=== PATIENT | female | born 1940 | race Hispanic/Latino ===

== ENCOUNTER 2017-06-12 09:49 | Day surgery (SDC) | payer MEDICARE, MEDICAID ==
[2017-05-14 17:51] VITALS: BMI 32.3
[2017-06-12] MEDS ORDERED: Levofloxacin 500 mg/D5W 100 ml Premix Bag ONE (12:09)
[2017-06-12] MEDS ORDERED: Fentanyl 100 MCG/2 ML VIAL ONE (12:14)
[2017-06-12] MEDS ORDERED: Lidocaine 2% PF 10 ML AMP (For Epidural Use) ONE (12:40)
[2017-06-12] MEDS ORDERED: PHENYLEPHRINE-NS 100 MCG/ML 10 ML SYRINGE ONE (12:40)
[2017-06-12] MEDS ORDERED: Propofol 200 MG/20 ML VIAL ONE (12:40)
[2017-06-12] MEDS ORDERED: Glycopyrrolate 0.2 MG/ML 5 ML SYRINGE ONE (12:40)
[2017-06-12] MEDS ORDERED: Ondansetron HCl/PF 4 MG/2 ML Vial ONE (12:40)
--- NOTE | 2017-06-12 13:37 | OP ---
DATE OF PROCEDURE: 06/12/2017 PREOPERATIVE DIAGNOSES: 1. A 76-year-old female, G 13, P 132, with history of recurrent bacteriuria, usually asymptomatic. 2. History of microscopic hematuria. CT abdomen and pelvis/angiograms 08/2016 with no significant bladder lesion. 3. History of renal artery stenosis. 4. Nonspecific posterior/dome cystic lesion of unclear etiology. POSTOPERATIVE DIAGNOSES: 1. A 76-year-old female, G 13, P 132, with history of recurrent bacteriuria, usually asymptomatic. 2. History of microscopic hematuria. CT abdomen and pelvis/angiograms 08/2016 with no significant bladder lesion. 3. History of renal artery stenosis. 4. Nonspecific posterior/dome cystic lesion of unclear etiology. PROCEDURE: Cystoscopy, bladder biopsy, fulguration of biopsy site. SURGEON: Maryam Robbins D.O. ANESTHESIA: General. COMPLICATIONS: None apparent. DISPOSITION: To the recovery room in stable condition. INTRAOPERATIVE FINDINGS: No evidence of papillary bladder lesion. At the junction of the posterior bladder wall/dome a 6-8 mm nonspecific submucosal cystic like lesion, unclear etiology. INDICATIONS FOR THE PROCEDURE AND HISTORY: Mr. Bowers is a 76-year-old female, who presented with history of peripheral vascular disease, renal artery stenosis, on observation for recurrent bacteria usually asymptomatic. CT angiogram of the abdomen and pelvis demonstrates no significant bladder lesion, no bladder dome mass, no urethral abnormality, no renal mass appreciated. She underwent local cystoscopy due to incidental microscopic hematuria, cytology negative. She has been cleared by cardiopulmonary subspecialists to proceed due to her comorbidities. Risks and complications of the procedure was discussed with patient in detail including, but not limited to, bleeding, pain, injury to adjacent organs, bladder perforation. All questions answered to her satisfaction, she desired to proceed. DESCRIPTION OF THE PROCEDURE: After an informed consent is signed, the patient is taken to the operating room, placed in a dorsal lithotomy position with the genital area prepped and draped in the usual surgical sterile fashion. A 21- [place] cystoscope was utilized with ease. As previously noted, she has a significant pelvic prolapse with deviated trigone. A 70 degree lens was utilized, which UOs were identified. There was no evidence of papillary bladder mass. The UOs demonstrated clear efflux of urine. Again noted at the junction of the posterior wall/dome there was a 6-8 mm cystic lesion of unclear etiology. A cold cup biopsy was utilized to remove the lesion intact and the biopsy site was fulgurated. Lesions were sent with biopsy x2 performing. She tolerated the procedure well with good hemostasis. No Dobson was necessary due to small lesion biopsy. She will follow up with me in 2-week interval to review pathology. Appointment scheduled for 07/08/2017. She is advised to continue her baby aspirin, Plavix is to be held until urine output remains clear , minimum of 24-48 hours. The patient discharged with AZO p.r.n., ciprofloxacin for 3 days. MTDD
[2017-06-12] MEDS ORDERED: Phenazopyridine HCl 97.5 MG TABLET ONE (13:43)
[2017-06-12] MEDS ORDERED: Oxybutynin Chloride 5 MG TAB ONE (13:43)
== END 2017-06-12 15:40 ==
LOC: SDC 09:49
PROVIDERS: ATTEND Urology
PROC: 0T5B8ZZ Destruction of Bladder, Via Natural or Artificial Opening Endoscopic (ICD-10-PCS; principal; 2017-06-12)
DX: N30.21 Other chronic cystitis with hematuria (principal); M32.9 Systemic lupus erythematosus, unspecified; M19.90 Unspecified osteoarthritis, unspecified site; K21.9 Gastro-esophageal reflux disease without esophagitis; E11.22 Type 2 diabetes mellitus with diabetic chronic kidney disease; I13.0 Hypertensive heart and chronic kidney disease with heart failure and stage 1 through stage 4 chronic kidney disease, or unspecified chronic kidney disease; N18.3 Chronic kidney disease, stage 3 (moderate); I50.9 Heart failure, unspecified; N81.6 Rectocele; E11.42 Type 2 diabetes mellitus with diabetic polyneuropathy; I25.10 Atherosclerotic heart disease of native coronary artery without angina pectoris; G51.0 Bell's palsy; I72.2 Aneurysm of renal artery; Z88.2 Allergy status to sulfonamides; Z91.018 Allergy to other foods; Z79.899 Other long term (current) drug therapy; Z79.82 Long term (current) use of aspirin; Z90.49 Acquired absence of other specified parts of digestive tract; Z95.5 Presence of coronary angioplasty implant and graft; Z98.818 Other dental procedure status; Z98.890 Other specified postprocedural states; Z87.01 Personal history of pneumonia (recurrent)
CPT/HCPCS: 36415; 80048; 81001; 85027; 85610; 85730; 86850; 86900; 86901; 87086; 88305; J1956; J2001; J2405; J2704; J3010

== ENCOUNTER 2017-11-27 13:29 | Outpatient (CLI) | payer MEDICARE, MEDICAID | END 2017-11-27 13:30 | disposition home or self-care (01) | LOC: BICMAMMO 13:29 | PROVIDERS: ATTEND Family Medicine | DX: Z12.31 Encounter for screening mammogram for malignant neoplasm of breast (principal) | CPT/HCPCS: 77063; 77067 ==

== ENCOUNTER 2019-12-11 14:01 | Outpatient (CLI) | payer MEDICARE, MEDICAID ==
--- NOTE | 2019-12-11 14:49 | BD ---
DEXA BONE DENSITY STUDY: Date: 12/11/2019 HISTORY: Osteoporosis, postmenopausal evaluation. FINDINGS: Lumbar Spine: BMD (g/cm2) L1 0.649 T-Score: -3.1 L2 0.608 T-Score: -2.9 L3 0.815 T-Score: -2.4 L4 0.827 T-Score: -2.1 L1-L4 0.760 T-Score: -2.6 Evidence for osteoporosis with high risk for fracture. Bone mineral density has decreased approximately 6% from prior 06/17/2014 study. Left Hip: Femoral Neck: 0.446 T-Score: -3.6 Total Femur: 0.640 T-Score: -2.5 Evidence for osteoporosis with high risk for fracture. Bone mineral density has decreased approximately 5% from 06/17/2014. POS: [facility]
== END 2019-12-11 14:02 | disposition home or self-care (01) ==
LOC: BICMAMMO 14:01
PROVIDERS: ATTEND Family Medicine
DX: Z13.820 Encounter for screening for osteoporosis (principal); M81.0 Age-related osteoporosis without current pathological fracture
CPT/HCPCS: 77080

== ENCOUNTER 2021-03-12 20:45 | Emergency (ER) | payer MEDICARE, MEDICAID ==
[2021-03-12 21:48] LABS: #Eosinphils 0.1 thou/uL (0.0-0.7); #Lymphocytes 2.8 thou/uL (1.20-3.40); #Monocytes 0.6 thou/uL (0.11-0.59); #Neutrophils 5.6 thou/uL (1.40-6.50); %Basophils 0.5 % (0.0-1.0); %Eosinophils 1.2 % (0.0-10.0); %Lymphocytes 30.3 % (21.0-51.0); %Monocytes 6.7 % (0.0-10.0); %Neutrophils 61.4 % (42.0-75.0); Hemoglobin 11.3 g/dL (12.0-16.0); Mean Corpuscular HGB CONC 33.8 g/dL (32.0-36.0); Mean Corpuscular Hemoglobin 34.9 pg (27.0-31.0); Mean Platelet Volume 7.4 fL (7.4-10.4); Platelet Count 212 thou/uL (130-400); RBC Distribution Width 11.5 % (11.5-14.5); Red Blood Cell (RBC) Count 3.25 mill/uL (4.20-5.40); White Blood Cell (WBC) Count 9.1 thou/uL (4.8-10.8)
[2021-03-12 21:56] LABS: ALT (SGPT) 24 U/L (8-55); AST (SGOT) 26 U/L (5-34); Alkaline Phosphatase 89 U/L (40-110); Anion Gap 16 mmol/L (10-20); BUN (Urea Nitrogen) 27 mg/dL (9.8-20.1); Bilirubin, Total 0.2 mg/dL (0.2-1.2); Calc. Creatinine Clearance 0 mL/min (70-130); Calcium 9.2 mg/dL (7.8-10.44); Carbon Dioxide 25 mmol/L (23-31); Chloride 103 mmol/L (98-107); Globulin 3.6 g/dL (2.4-3.5); Glucose 76 mg/dL (83-110); Lipase 141 U/L (8-78); Potassium 4.5 mmol/L (3.5-5.1); Protein, Total 7.6 g/dL (5.8-8.1); Sodium 139 mmol/L (136-145)
[2021-03-12 22:01] LABS: Troponin I Less than 0.010 ng/mL (< 0.028)
[2021-03-12] MEDS ORDERED: Lidocaine Viscous Sol 2% 15 ml UD Cup ONE (23:45)
[2021-03-12] MEDS ORDERED: Mag-Al 1200 mg/1200 mg/30 ML UDCUP ONE (23:45)
== END 2021-03-13 00:42 | disposition home or self-care (01) ==
LOC: ERS 20:45
DX: R07.89 Other chest pain (principal); I12.9 Hypertensive chronic kidney disease with stage 1 through stage 4 chronic kidney disease, or unspecified chronic kidney disease; E11.22 Type 2 diabetes mellitus with diabetic chronic kidney disease; N18.9 Chronic kidney disease, unspecified; I25.10 Atherosclerotic heart disease of native coronary artery without angina pectoris; E78.00 Pure hypercholesterolemia, unspecified; E78.5 Hyperlipidemia, unspecified; K21.9 Gastro-esophageal reflux disease without esophagitis; E11.40 Type 2 diabetes mellitus with diabetic neuropathy, unspecified; Z86.711 Personal history of pulmonary embolism; Z86.718 Personal history of other venous thrombosis and embolism; Z86.73 Personal history of transient ischemic attack (TIA), and cerebral infarction without residual deficits; Z79.82 Long term (current) use of aspirin; Z79.899 Other long term (current) drug therapy; Z79.02 Long term (current) use of antithrombotics/antiplatelets
CPT/HCPCS: 36415; 71045; 71275; 83690; 83880; 93005

== ENCOUNTER 2022-02-08 15:04 | Observation (INO) | payer MEDICARE, MEDICAID ==
[2022-02-08 16:12] LABS: #Lymphocytes 1.6 thou/uL (1.20-3.40); #Monocytes 0.3 thou/uL (0.11-0.59); #Neutrophils 5.3 thou/uL (1.40-6.50); %Basophils 0.1 % (0.0-1.0); %Eosinophils 0.6 % (0.0-10.0); %Lymphocytes 21.8 % (21.0-51.0); %Monocytes 4.6 % (0.0-10.0); %Neutrophils 72.9 % (42.0-75.0); Hemoglobin 10.3 g/dL (12.0-16.0); Mean Corpuscular HGB CONC 33.3 g/dL (32.0-36.0); Mean Corpuscular Hemoglobin 36.5 pg (27.0-31.0); Mean Platelet Volume 6.9 fL (7.4-10.4); Platelet Count 179 thou/uL (130-400); RBC Distribution Width 11.1 % (11.5-14.5); Red Blood Cell (RBC) Count 2.83 mill/uL (4.20-5.40); White Blood Cell (WBC) Count 7.3 thou/uL (4.8-10.8)
[2022-02-08 16:21] LABS: INR-International Normal Ratio 1.2; Prothrombin Time 14.9 sec (12.0-14.7)
[2022-02-08 16:22] LABS: PTT 36.9 sec (22.9-36.1)
[2022-02-08 16:27] LABS: MDiff Complete? YES; Macrocytosis SLIGHT = 6-15 cells (100X) (0-5/hpf); Platelet Morphology Comment Appears Adequate; Polychromasia SLIGHT = 2-3 cells (100X) (0-2/hpf)
[2022-02-08 16:34] LABS: ALT (SGPT) 12 U/L (8-55); AST (SGOT) 17 U/L (5-34); Albumin 3.8 g/dL (3.4-4.8); Alkaline Phosphatase 76 U/L (40-110); Anion Gap 12 mmol/L (10-20); BUN (Urea Nitrogen) 28 mg/dL (9.8-20.1); Bilirubin, Total 0.4 mg/dL (0.2-1.2); Calc. Creatinine Clearance 0 mL/min (70-130); Calcium 8.8 mg/dL (7.8-10.44); Carbon Dioxide 23 mmol/L (23-31); Chloride 106 mmol/L (98-107); Glucose 113 mg/dL (83-110); Potassium 4.8 mmol/L (3.5-5.1); Protein, Total 6.8 g/dL (5.8-8.1); Sodium 136 mmol/L (136-145)
[2022-02-08] MEDS ORDERED: Calcium Carbonate 500 MG ChewTAB PO PRN (18:24)
[2022-02-08] MEDS ORDERED: Acetaminophen 325 MG TAB PO PRN (18:24)
[2022-02-08] MEDS ORDERED: Senokot S 8.6-50 MG TAB PO PRN (18:24)
[2022-02-08] MEDS ORDERED: HYDROcodone/Acetaminophen 5/325 mg Tablet PO PRN (18:24)
[2022-02-08 19:37] VITALS: BMI 24.0
[2022-02-08] MEDS ORDERED: Enoxaparin Sodium 60 MG/0.6 ML SYRINGE SC SCH (20:00)
[2022-02-09 02:13] LABS: SARS-CoV-2 PCR by NAA Not Detected (NotDetected)
[2022-02-09 04:34] LABS: #Eosinphils 0.1 thou/uL (0.0-0.7); #Monocytes 0.5 thou/uL (0.11-0.59); #Neutrophils 3.9 thou/uL (1.40-6.50); %Basophils 0.6 % (0.0-1.0); %Eosinophils 1.4 % (0.0-10.0); %Lymphocytes 30.1 % (21.0-51.0); %Monocytes 8.4 % (0.0-10.0); %Neutrophils 59.5 % (42.0-75.0); Hemoglobin 10.7 g/dL (12.0-16.0); Mean Corpuscular HGB CONC 33.1 g/dL (32.0-36.0); Mean Corpuscular Hemoglobin 36.3 pg (27.0-31.0); Mean Platelet Volume 6.9 fL (7.4-10.4); Platelet Count 161 thou/uL (130-400); Red Blood Cell (RBC) Count 2.94 mill/uL (4.20-5.40); White Blood Cell (WBC) Count 6.5 thou/uL (4.8-10.8)
[2022-02-09 04:57] LABS: Anion Gap 10 mmol/L (10-20); BUN (Urea Nitrogen) 22 mg/dL (9.8-20.1); Calc. Creatinine Clearance 31 mL/min (70-130); Calcium 8.4 mg/dL (7.8-10.44); Carbon Dioxide 24 mmol/L (23-31); Chloride 111 mmol/L (98-107); Glucose 89 mg/dL (83-110); Potassium 4.2 mmol/L (3.5-5.1); Sodium 141 mmol/L (136-145)
[2022-02-09] MEDS ORDERED: traMADol HCl 50 MG TAB PO PRN (08:29)
[2022-02-09] MEDS ORDERED: Loratadine 10 MG TAB PO PRN (08:29)
[2022-02-09] MEDS ORDERED: HYDROcodone/Acetaminophen 5/325 mg Tablet PO PRN (08:29)
[2022-02-09] MEDS ORDERED: Multivit, Therapeutic 1 TAB PO SCH (09:30)
[2022-02-09] MEDS ORDERED: Famotidine 20 MG TAB PO SCH (09:30)
[2022-02-09] MEDS: Amlodipine 5 MG TAB PO SCH ×2 (09:45→20:13)
[2022-02-09] MEDS: Clopidogrel Bisulfate 75 MG TAB PO SCH (09:46)
[2022-02-09] MEDS: Aspirin 81 mg Enteric Coated Tablet PO SCH (09:46)
[2022-02-09] MEDS: Gabapentin 300 MG CAP PO SCH ×2 (09:48→20:14)
[2022-02-09] MEDS: Carvedilol 25 MG TAB PO SCH (16:08)
[2022-02-09] MEDS ORDERED: Enoxaparin Sodium 40 MG/0.4 ML SYRINGE SC SCH (18:00)
[2022-02-09] MEDS ORDERED: Electrolyte Replacement Protocol 1 EACH FS SCH (18:00)
[2022-02-09] MEDS: Sodium Chloride 0.9% 1,000 ML IV SCH (18:47)
[2022-02-09] MEDS ORDERED: Atorvastatin Calcium 40 MG TAB PO SCH (21:00)
[2022-02-09] MEDS ORDERED: Ezetimibe 10 MG TAB PO SCH (21:00)
[2022-02-10 04:51] LABS: #Basophils 0.1 thou/uL (0.0-0.2); #Eosinphils 0.1 thou/uL (0.0-0.7); #Lymphocytes 2.4 thou/uL (1.20-3.40); #Monocytes 0.6 thou/uL (0.11-0.59); #Neutrophils 3.2 thou/uL (1.40-6.50); %Eosinophils 1.5 % (0.0-10.0); %Lymphocytes 37.7 % (21.0-51.0); %Neutrophils 50.9 % (42.0-75.0); Hemoglobin 10.2 g/dL (12.0-16.0); Mean Corpuscular HGB CONC 34.3 g/dL (32.0-36.0); Mean Corpuscular Hemoglobin 37.3 pg (27.0-31.0); Mean Platelet Volume 7.6 fL (7.4-10.4); Platelet Count 173 thou/uL (130-400); RBC Distribution Width 11.7 % (11.5-14.5); Red Blood Cell (RBC) Count 2.74 mill/uL (4.20-5.40); White Blood Cell (WBC) Count 6.3 thou/uL (4.8-10.8)
[2022-02-10 05:14] LABS: Anion Gap 9 mmol/L (10-20); BUN (Urea Nitrogen) 14 mg/dL (9.8-20.1); Calc. Creatinine Clearance 43 mL/min (70-130); Calcium 8.6 mg/dL (7.8-10.44); Carbon Dioxide 26 mmol/L (23-31); Chloride 112 mmol/L (98-107); Glucose 113 mg/dL (83-110); Magnesium 1.6 mg/dL (1.6-2.6); Sodium 143 mmol/L (136-145)
[2022-02-10 05:19] LABS: Troponin I Less than 0.010 ng/mL (< 0.028)
[2022-02-10] MEDS ORDERED: Magnesium 2 GM/50 ML(in water) 2 GM in Premix Bag 1 BAG IVPB SCH (05:30)
[2022-02-10] MEDS: Clopidogrel Bisulfate 75 MG TAB PO SCH (08:40)
[2022-02-10] MEDS: Aspirin 81 mg Enteric Coated Tablet PO SCH (08:42)
[2022-02-10] MEDS: Amlodipine 5 MG TAB PO SCH (08:42)
[2022-02-10] MEDS: Gabapentin 300 MG CAP PO SCH (08:43)
[2022-02-10] MEDS: Carvedilol 25 MG TAB PO SCH (08:44)
[2022-02-10] MEDS ORDERED: Cyanocobalamin (Vitamin B-12) 1,000 MCG TAB PO SCH (09:00)
[2022-02-10] MEDS ORDERED: Famotidine 20 MG TAB PO SCH (09:00)
[2022-02-10] MEDS ORDERED: Multivit, Therapeutic 1 TAB PO SCH (09:00)
[2022-02-10] MEDS: Sodium Chloride 0.9% 1,000 ML IV SCH (09:46)
[2022-02-10] MEDS ORDERED: Iopamidol-370 76% 500 ML 1 ML ONE (10:11)
[2022-02-10 11:40] VITALS: BP 152/69; TEMP 97.9
== END 2022-02-10 15:20 | disposition home or self-care (01) ==
LOC: ERS 15:04 → 2SW 17:19
PROVIDERS: ADMIT Internal Medicine; ATTEND Internal Medicine
DX: J96.01 Acute respiratory failure with hypoxia (principal); M79.604 Pain in right leg; R10.30 Lower abdominal pain, unspecified; I13.10 Hypertensive heart and chronic kidney disease without heart failure, with stage 1 through stage 4 chronic kidney disease, or unspecified chronic kidney disease; N18.2 Chronic kidney disease, stage 2 (mild); N17.9 Acute kidney failure, unspecified; D63.1 Anemia in chronic kidney disease; I25.10 Atherosclerotic heart disease of native coronary artery without angina pectoris; I73.9 Peripheral vascular disease, unspecified; E78.5 Hyperlipidemia, unspecified; M19.90 Unspecified osteoarthritis, unspecified site; J44.9 Chronic obstructive pulmonary disease, unspecified; K21.9 Gastro-esophageal reflux disease without esophagitis; M81.0 Age-related osteoporosis without current pathological fracture; I08.3 Combined rheumatic disorders of mitral, aortic and tricuspid valves; Z86.73 Personal history of transient ischemic attack (TIA), and cerebral infarction without residual deficits; Z86.711 Personal history of pulmonary embolism; Z86.718 Personal history of other venous thrombosis and embolism; Z79.02 Long term (current) use of antithrombotics/antiplatelets; Z79.82 Long term (current) use of aspirin; Z79.899 Other long term (current) drug therapy; Z79.84 Long term (current) use of oral hypoglycemic drugs; Z88.2 Allergy status to sulfonamides; Z91.018 Allergy to other foods; Z95.5 Presence of coronary angioplasty implant and graft; Z20.822 Contact with and (suspected) exposure to COVID-19
CPT/HCPCS: 71045; 71275; 78451; 80048 ×2; 80053; 82962 ×2; 83735; 83880; 84484 ×2; 85025 ×3; 85379; 85610; 85730; 93306; 93971; 94640 ×3; 94799; 97139 ×3; 99285; A9540; U0003; U0005; 36415; 36416; 96372; 96374; G0378; J1650; J3475; J7050; J7620; Q9967

== ENCOUNTER 2023-03-11 05:44 | Inpatient (IN) | payer OTHER, MEDICAID ==
[2023-03-11 07:00] LABS: #Eosinphils 0.1 thou/uL (0.0-0.7); #Monocytes 0.1 thou/uL (0.11-0.59); #Neutrophils 5.9 thou/uL (1.40-6.50); %Basophils 0.3 % (0.0-1.0); %Eosinophils 1.3 % (0.0-10.0); %Lymphocytes 11.7 % (21.0-51.0); %Monocytes 1.4 % (0.0-10.0); %Neutrophils 85.2 % (42.0-75.0); Hemoglobin 10.4 g/dL (12.0-16.0); Mean Corpuscular HGB CONC 33.9 g/dL (32.0-36.0); Mean Corpuscular Volume 103.4 fl (78.0-98.0); Mean Platelet Volume 10.1 fL (7.4-10.4); Platelet Count 161 10x3/uL (130-400); RBC Distribution Width 12.2 % (11.5-14.5); Red Blood Cell (RBC) Count 2.97 mill/uL (4.20-5.40); White Blood Cell (WBC) Count 6.9 10x3/uL (4.8-10.8)
[2023-03-11 07:24] LABS: ALT (SGPT) 141 U/L (8-55); AST (SGOT) 337 U/L (5-34); Albumin 3.9 g/dL (3.4-4.8); Alkaline Phosphatase 154 U/L (40-110); Anion Gap 11 mmol/L (10-20); BUN (Urea Nitrogen) 31 mg/dL (9.8-20.1); Bilirubin, Total 0.5 mg/dL (0.2-1.2); Calc. Creatinine Clearance 0 mL/min (70-130); Carbon Dioxide 28 mmol/L (23-31); Chloride 105 mmol/L (98-107); Estimated GFR 30; Globulin 2.8 g/dL (2.4-3.5); Glucose 158 mg/dL (83-110); Potassium 3.8 mmol/L (3.5-5.1); Protein, Total 6.7 g/dL (5.8-8.1); Sodium 140 mmol/L (136-145)
[2023-03-11 07:50] LABS: Lipase 13056 U/L (8-78)
[2023-03-11] MEDS ORDERED: Morphine 4 MG/ML VIAL ONE (08:11)
[2023-03-11] MEDS ORDERED: Glucagon 1 MG/ML KIT IM PRN (08:28)
[2023-03-11] MEDS ORDERED: HumaLOG 300 UNITS/3 ML VIAL SC PRN (08:28)
[2023-03-11] MEDS ORDERED: Senokot S 8.6-50 MG TAB PO PRN (08:28)
[2023-03-11] MEDS ORDERED: Meperidine HCl/PF 25 MG/ML VIAL SLOW IVP PRN (08:28)
[2023-03-11] MEDS ORDERED: Guaifenesin DM 100-10/5 ML UDCUP PO PRN (08:28)
[2023-03-11] MEDS ORDERED: Dextrose 50% Abboject 50 ML SYRINGE SLOW IVP PRN (08:28)
[2023-03-11] MEDS ORDERED: Ondansetron PF 4 MG/2 ML Vial IVP PRN (08:28)
[2023-03-11] MEDS ORDERED: Dextrose 5% in Water 1,000 ML IV PRN (08:28)
[2023-03-11] MEDS ORDERED: Ipratropium/Albuterol 3 ML NEB NEB PRN (08:33)
[2023-03-11] MEDS: Sodium Chloride 0.9% 1,000 ML IV SCH ×3 (08:54→21:05)
[2023-03-11] MEDS ORDERED: Albuterol 2.5 MG/0.5 ML NEB NEB PRN (08:58)
[2023-03-11] MEDS ORDERED: Iopamidol-370 76% 500 ML MDV (1 ML CHARGE) ONE (09:14)
[2023-03-11] MEDS ORDERED: Amlodipine 5 MG TAB ONE (10:08)
[2023-03-11] MEDS ORDERED: Aspirin Chewable 81 MG TAB ONE (10:08)
[2023-03-11 10:23] LABS: Iron 68 ug/dL (50-170); Iron Binding Capacity, Total 296 mcg/dL (265-497)
[2023-03-11 10:26] LABS: Cardiac Risk 2.3 (Less than 4.5)
[2023-03-11 10:28] LABS: Troponin I Less than 0.010 ng/mL (< 0.028)
[2023-03-11] MEDS: Carvedilol 6.25 MG TAB PO SCH ×2 (10:48→21:06)
[2023-03-11] MEDS: Amlodipine 5 MG TAB PO SCH (10:48)
[2023-03-11] MEDS: Aspirin 81 mg Enteric Coated Tablet PO SCH (10:48)
[2023-03-11] MEDS: Cyanocobalamin (Vitamin B-12) 1,000 MCG TAB PO SCH (10:49)
[2023-03-11] MEDS: Gabapentin 300 MG CAP PO SCH (10:50)
[2023-03-11 13:45] LABS: Troponin I 0.013 ng/mL (< 0.028)
[2023-03-11] MEDS ORDERED: Acetaminophen 325 MG TAB ONE (14:03)
[2023-03-11] MEDS: Acetaminophen 325 MG TAB PO PRN (14:05)
[2023-03-11] MEDS: Dextrose 5 % And 0.9 % NaCl 1,000 ML IV SCH (21:15)
[2023-03-12] MEDS: Sodium Chloride 0.9% 1,000 ML IV SCH ×6 (00:16→18:12)
[2023-03-12] MEDS: Dextrose 5 % And 0.9 % NaCl 1,000 ML IV SCH ×2 (02:23→11:02)
[2023-03-12 04:51] LABS: #Eosinphils 0.1 thou/uL (0.0-0.7); #Monocytes 0.7 thou/uL (0.11-0.59); #Neutrophils 8.9 thou/uL (1.40-6.50); %Basophils 0.2 % (0.0-1.0); %Eosinophils 0.8 % (0.0-10.0); %Lymphocytes 12.9 % (21.0-51.0); %Monocytes 6.4 % (0.0-10.0); %Neutrophils 79.3 % (42.0-75.0); Hemoglobin 9.4 g/dL (12.0-16.0); Mean Corpuscular HGB CONC 33.2 g/dL (32.0-36.0); Mean Corpuscular Hemoglobin 34.2 pg (27.0-31.0); Mean Corpuscular Volume 102.9 fl (78.0-98.0); Mean Platelet Volume 10.1 fL (7.4-10.4); Platelet Count 127 10x3/uL (130-400); RBC Distribution Width 12.7 % (11.5-14.5); Red Blood Cell (RBC) Count 2.75 mill/uL (4.20-5.40); White Blood Cell (WBC) Count 11.2 10x3/uL (4.8-10.8)
[2023-03-12] MEDS: Acetaminophen 325 MG TAB PO PRN ×2 (04:51→21:35)
[2023-03-12 05:25] LABS: ALT (SGPT) 1362 U/L (8-55); AST (SGOT) 1556 U/L (5-34); Albumin 3.2 g/dL (3.4-4.8); Alkaline Phosphatase 196 U/L (40-110); Anion Gap 6 mmol/L (10-20); BUN (Urea Nitrogen) 16 mg/dL (9.8-20.1); Bilirubin, Total 1.2 mg/dL (0.2-1.2); Calc. Creatinine Clearance 29 mL/min (70-130); Carbon Dioxide 28 mmol/L (23-31); Chloride 104 mmol/L (98-107); Estimated GFR 48; Globulin 2.5 g/dL (2.4-3.5); Glucose 162 mg/dL (83-110); Potassium 3.6 mmol/L (3.5-5.1); Protein, Total 5.7 g/dL (5.8-8.1); Sodium 134 mmol/L (136-145)
[2023-03-12] MEDS: Cyanocobalamin (Vitamin B-12) 1,000 MCG TAB PO SCH (08:53)
[2023-03-12] MEDS: Aspirin 81 mg Enteric Coated Tablet PO SCH (08:53)
[2023-03-12] MEDS: Amlodipine 5 MG TAB PO SCH (08:53)
[2023-03-12] MEDS: Pantoprazole 40 MG VIAL IVP SCH (08:54)
[2023-03-12] MEDS: Carvedilol 6.25 MG TAB PO SCH ×2 (08:54→21:33)
[2023-03-12] MEDS: Gabapentin 300 MG CAP PO SCH (08:54)
[2023-03-12 10:51] VITALS: BMI 21.5
[2023-03-12 17:12] LABS: EliA Celiac New Method **** NEW METHOD ****; t-Transglutaminase (tTG) IgG 1.6 EliAU/mL (<7 Negative)
[2023-03-13] MEDS: Sodium Chloride 0.9% 1,000 ML IV SCH ×2 (01:17→09:09)
[2023-03-13 05:14] LABS: #Eosinphils 0.1 thou/uL (0.0-0.7); #Monocytes 0.7 thou/uL (0.11-0.59); #Neutrophils 6.3 thou/uL (1.40-6.50); %Basophils 0.2 % (0.0-1.0); %Eosinophils 1.1 % (0.0-10.0); %Lymphocytes 19.2 % (21.0-51.0); %Monocytes 7.4 % (0.0-10.0); %Neutrophils 71.8 % (42.0-75.0); Hemoglobin 10.2 g/dL (12.0-16.0); Mean Corpuscular HGB CONC 32.6 g/dL (32.0-36.0); Mean Corpuscular Hemoglobin 34.5 pg (27.0-31.0); Mean Corpuscular Volume 105.7 fl (78.0-98.0); Mean Platelet Volume 10.4 fL (7.4-10.4); Platelet Count 135 10x3/uL (130-400); RBC Distribution Width 12.8 % (11.5-14.5); Red Blood Cell (RBC) Count 2.96 mill/uL (4.20-5.40); White Blood Cell (WBC) Count 8.8 10x3/uL (4.8-10.8)
[2023-03-13 05:40] LABS: ALT (SGPT) 801 U/L (8-55); AST (SGOT) 520 U/L (5-34); Alkaline Phosphatase 168 U/L (40-110); Anion Gap 10 mmol/L (10-20); BUN (Urea Nitrogen) 11 mg/dL (9.8-20.1); Bilirubin, Total 0.7 mg/dL (0.2-1.2); Calc. Creatinine Clearance 39 mL/min (70-130); Calcium 8.2 mg/dL (7.8-10.44); Carbon Dioxide 20 mmol/L (23-31); Chloride 115 mmol/L (98-107); Estimated GFR 68; Globulin 2.7 g/dL (2.4-3.5); Glucose 89 mg/dL (83-110); Lipase 139 U/L (8-78); Potassium 3.7 mmol/L (3.5-5.1); Protein, Total 5.7 g/dL (5.8-8.1); Sodium 141 mmol/L (136-145)
[2023-03-13 05:59] LABS: HBCM Index 0.06 S/CO (0-0.79); HBSAg Index 0.15 S/CO (0-0.99); Hep A IgM AB Non-Reactive S/CO (NonReactive); Hep B Surf Ag Non-Reactive S/CO (NonReactive); Hep C IgG Ab Non-Reactive S/CO (NonReactive); Hep C Index 0.07 S/CO (0-0.79); Hepatitis B Core IgM Abs Non-Reactive S/CO (NonReactive)
[2023-03-13] MEDS: Cyanocobalamin (Vitamin B-12) 1,000 MCG TAB PO SCH (09:08)
[2023-03-13] MEDS: Amlodipine 5 MG TAB PO SCH (09:08)
[2023-03-13] MEDS: Gabapentin 300 MG CAP PO SCH (09:08)
[2023-03-13] MEDS: Aspirin 81 mg Enteric Coated Tablet PO SCH (09:08)
[2023-03-13] MEDS: Pantoprazole 40 MG VIAL IVP SCH (09:09)
[2023-03-13] MEDS: Carvedilol 6.25 MG TAB PO SCH (09:09)
[2023-03-13 13:04] VITALS: BP 164/72; TEMP 98.5
[2023-03-13] MEDS ORDERED: Furosemide 20 MG/2 ML VIAL SLOW IVP SCH (13:45)
== END 2023-03-13 15:10 | disposition home or self-care (01) | DRG 439 ==
LOC: ERS 05:44 → ERHOLD 08:28 → 2NO 17:49
PROVIDERS: ADMIT Internal Medicine; ATTEND Family Medicine
DX: K85.90 Acute pancreatitis without necrosis or infection, unspecified (principal); J90 Pleural effusion, not elsewhere classified; N17.9 Acute kidney failure, unspecified; I25.10 Atherosclerotic heart disease of native coronary artery without angina pectoris; K21.9 Gastro-esophageal reflux disease without esophagitis; E78.5 Hyperlipidemia, unspecified; M19.90 Unspecified osteoarthritis, unspecified site; J44.9 Chronic obstructive pulmonary disease, unspecified; E11.51 Type 2 diabetes mellitus with diabetic peripheral angiopathy without gangrene; N18.30 Chronic kidney disease, stage 3 unspecified; R09.02 Hypoxemia; I12.9 Hypertensive chronic kidney disease with stage 1 through stage 4 chronic kidney disease, or unspecified chronic kidney disease; E11.42 Type 2 diabetes mellitus with diabetic polyneuropathy; E11.22 Type 2 diabetes mellitus with diabetic chronic kidney disease; Z86.73 Personal history of transient ischemic attack (TIA), and cerebral infarction without residual deficits; Z86.711 Personal history of pulmonary embolism; Z86.718 Personal history of other venous thrombosis and embolism; Z90.49 Acquired absence of other specified parts of digestive tract; Z98.890 Other specified postprocedural states; Z79.82 Long term (current) use of aspirin; Z95.5 Presence of coronary angioplasty implant and graft; Z88.2 Allergy status to sulfonamides; Z91.018 Allergy to other foods; Z79.899 Other long term (current) drug therapy; Z79.51 Long term (current) use of inhaled steroids; Z79.84 Long term (current) use of oral hypoglycemic drugs
CPT/HCPCS: 36415; 36416; 71045; 74177; 74181; 76705; 80053; 80061; 80074; 82607; 83516; 83540; 83550; 83690; 84484; 85025; 86301; 93005; 96361; 96374; C9113; J1650; J1940; J2270; J7042; J7050; J7070; Q9967

== ENCOUNTER 2023-08-08 10:12 | Outpatient (CLI) | payer OTHER, MEDICAID | END 2023-08-08 10:13 | disposition home or self-care (01) | LOC: RAD 10:12 | PROVIDERS: ATTEND Physician Assistant Medical | DX: K86.9 Disease of pancreas, unspecified (principal); D53.9 Nutritional anemia, unspecified; R13.12 Dysphagia, oropharyngeal phase; R79.89 Other specified abnormal findings of blood chemistry | CPT/HCPCS: 74230 ==

== ENCOUNTER 2023-09-16 01:03 | Inpatient (IN) | payer OTHER, MEDICAID ==
[2023-09-16] MEDS ORDERED: Ondansetron ODT 4 MG TAB PO PRN (01:28)
[2023-09-16] MEDS ORDERED: Calcium Carbonate 500 MG ChewTAB PO PRN (01:28)
[2023-09-16] MEDS ORDERED: Acetaminophen 325 MG TAB PO PRN (01:28)
[2023-09-16 01:51] VITALS: BMI 22.5
[2023-09-16 02:45] LABS: #Monocytes 0.6 thou/uL (0.11-0.59); #Neutrophils 4.5 thou/uL (1.40-6.50); %Basophils 0.3 % (0.0-1.0); %Eosinophils 0.4 % (0.0-10.0); %Lymphocytes 27.7 % (21.0-51.0); %Monocytes 7.9 % (0.0-10.0); %Neutrophils 63.6 % (42.0-75.0); Hematocrit 28.9 % (36.0-47.0); Hemoglobin 9.6 g/dL (12.0-16.0); Mean Corpuscular HGB CONC 33.2 g/dL (32.0-36.0); Mean Corpuscular Hemoglobin 35.2 pg (27.0-31.0); Mean Corpuscular Volume 105.9 fl (78.0-98.0); Mean Platelet Volume 9.8 fL (7.4-10.4); Platelet Count 145 10x3/uL (130-400); Red Blood Cell (RBC) Count 2.73 mill/uL (4.20-5.40); White Blood Cell (WBC) Count 7.1 10x3/uL (4.8-10.8)
[2023-09-16 02:55] LABS: Anion Gap 13 mmol/L (10-20); BUN (Urea Nitrogen) 35 mg/dL (9.8-20.1); Calc. Creatinine Clearance 13 mL/min (70-130); Calcium 8.1 mg/dL (7.8-10.44); Carbon Dioxide 20 mmol/L (23-31); Chloride 109 mmol/L (98-107); Estimated GFR 18; Glucose 77 mg/dL (83-110); Potassium 4.2 mmol/L (3.5-5.1); Sodium 138 mmol/L (136-145)
[2023-09-16] MEDS ORDERED: Famotidine 20 MG TAB PO SCH (09:00)
[2023-09-16] MEDS: Sodium Chloride 0.9% 1,000 ML IV SCH ×2 (09:48→22:34)
[2023-09-16] MEDS: cefTRIAXone\\ROCEPHIN 1 GM in Sodium Chloride 0.9% 100 ML IVPB SCH (09:49)
[2023-09-16] MEDS ORDERED: HYDROcodone/Acetaminophen 5/325 mg Tablet PO PRN (22:01)
[2023-09-16] MEDS ORDERED: Amlodipine 5 MG TAB PO SCH (22:15)
[2023-09-16] MEDS ORDERED: Carvedilol 25 MG TAB PO SCH (22:15)
[2023-09-16] MEDS: HYDROcodone/Acetaminophen 5/325 mg Tablet PO PRN (22:33)
[2023-09-17] MEDS: Sodium Chloride 0.9% 1,000 ML IV SCH ×2 (04:43→08:44)
[2023-09-17] MEDS: Clopidogrel Bisulfate 75 MG TAB PO SCH (08:43)
[2023-09-17] MEDS: Atorvastatin Calcium 40 MG TAB PO SCH (08:43)
[2023-09-17] MEDS: Loratadine 10 MG TAB PO SCH (08:43)
[2023-09-17] MEDS: cefTRIAXone\\ROCEPHIN 1 GM in Sodium Chloride 0.9% 100 ML IVPB SCH (08:43)
[2023-09-17] MEDS: Ezetimibe 10 MG TAB PO SCH (08:44)
[2023-09-17] MEDS: Amlodipine 5 MG TAB PO SCH (08:44)
[2023-09-17] MEDS: Aspirin 81 mg Enteric Coated Tablet PO SCH (08:44)
[2023-09-17] MEDS: Isosorbide Mononitrate 30 MG ER.TAB PO SCH (08:44)
[2023-09-17] MEDS: Carvedilol 25 MG TAB PO SCH ×2 (08:44→17:24)
[2023-09-17] MEDS: Famotidine 20 MG TAB PO SCH (08:44)
[2023-09-17 08:52] LABS: #Eosinphils 0.1 thou/uL (0.0-0.7); #Monocytes 0.6 thou/uL (0.11-0.59); #Neutrophils 5.2 thou/uL (1.40-6.50); %Basophils 0.3 % (0.0-1.0); %Eosinophils 1.4 % (0.0-10.0); %Lymphocytes 23.4 % (21.0-51.0); %Monocytes 8.1 % (0.0-10.0); %Neutrophils 66.5 % (42.0-75.0); Hematocrit 34.7 % (36.0-47.0); Hemoglobin 11.9 g/dL (12.0-16.0); Mean Corpuscular HGB CONC 34.3 g/dL (32.0-36.0); Mean Corpuscular Hemoglobin 35.4 pg (27.0-31.0); Mean Corpuscular Volume 103.3 fl (78.0-98.0); Platelet Count 170 10x3/uL (130-400); RBC Distribution Width 11.9 % (11.5-14.5); Red Blood Cell (RBC) Count 3.36 mill/uL (4.20-5.40); White Blood Cell (WBC) Count 7.8 10x3/uL (4.8-10.8)
[2023-09-17 09:17] LABS: ALT (SGPT) 14 U/L (8-55); AST (SGOT) 20 U/L (5-34); Albumin 3.8 g/dL (3.4-4.8); Alkaline Phosphatase 75 U/L (40-110); Anion Gap 12 mmol/L (10-20); BUN (Urea Nitrogen) 15 mg/dL (9.8-20.1); Bilirubin, Total 0.3 mg/dL (0.2-1.2); Calc. Creatinine Clearance 32 mL/min (70-130); Calcium 8.8 mg/dL (7.8-10.44); Carbon Dioxide 24 mmol/L (23-31); Chloride 108 mmol/L (98-107); Estimated GFR 53; Globulin 3.1 g/dL (2.4-3.5); Glucose 144 mg/dL (83-110); Potassium 3.6 mmol/L (3.5-5.1); Protein, Total 6.9 g/dL (5.8-8.1); Sodium 140 mmol/L (136-145)
[2023-09-17] MEDS ORDERED: Albuterol 200 PUFF (6.7GM INHALER) INH PRN (11:53)
[2023-09-17] MEDS ORDERED: Ipratropium/Albuterol 3 ML NEB NEB PRN (11:53)
[2023-09-17] MEDS ORDERED: HumaLOG 300 UNITS/3 ML VIAL SC PRN (11:58)
[2023-09-17] MEDS ORDERED: Glucagon 1 MG/ML KIT IM PRN (11:58)
[2023-09-17] MEDS ORDERED: Dextrose 5% in Water 1,000 ML IV PRN (11:58)
[2023-09-17] MEDS ORDERED: Dextrose 50% Abboject 50 ML SYRINGE SLOW IVP PRN (11:58)
[2023-09-17] MEDS ORDERED: LevoFLOXacin 750 MG TAB PO SCH (17:00)
[2023-09-17] MEDS: HYDROcodone/Acetaminophen 5/325 mg Tablet PO PRN (17:24)
[2023-09-17] MEDS: metFORMIN 500 MG TAB PO SCH (17:27)
[2023-09-17] MEDS: Acyclovir 400 mg Tablet PO SCH (20:34)
[2023-09-18 05:14] LABS: #Eosinphils 0.1 thou/uL (0.0-0.7); #Monocytes 0.7 thou/uL (0.11-0.59); #Neutrophils 4.2 thou/uL (1.40-6.50); %Basophils 0.4 % (0.0-1.0); %Eosinophils 1.6 % (0.0-10.0); %Lymphocytes 32.1 % (21.0-51.0); %Monocytes 9.5 % (0.0-10.0); %Neutrophils 56.3 % (42.0-75.0); Hemoglobin 11.3 g/dL (12.0-16.0); Mean Corpuscular HGB CONC 34.2 g/dL (32.0-36.0); Mean Corpuscular Hemoglobin 35.4 pg (27.0-31.0); Mean Corpuscular Volume 103.4 fl (78.0-98.0); Mean Platelet Volume 10.6 fL (7.4-10.4); Platelet Count 156 10x3/uL (130-400); RBC Distribution Width 11.7 % (11.5-14.5); Red Blood Cell (RBC) Count 3.19 mill/uL (4.20-5.40); White Blood Cell (WBC) Count 7.5 10x3/uL (4.8-10.8)
[2023-09-18 08:24] LABS: Anion Gap 12 mmol/L (10-20); BUN (Urea Nitrogen) 15 mg/dL (9.8-20.1); Calc. Creatinine Clearance 33 mL/min (70-130); Calcium 8.6 mg/dL (7.8-10.44); Carbon Dioxide 24 mmol/L (23-31); Chloride 107 mmol/L (98-107); Estimated GFR 55; Glucose 82 mg/dL (83-110); Sodium 139 mmol/L (136-145)
[2023-09-18] MEDS: Carvedilol 25 MG TAB PO SCH (08:28)
[2023-09-18] MEDS: Ezetimibe 10 MG TAB PO SCH (08:28)
[2023-09-18] MEDS: Isosorbide Mononitrate 30 MG ER.TAB PO SCH (08:28)
[2023-09-18] MEDS: Famotidine 20 MG TAB PO SCH (08:28)
[2023-09-18] MEDS: metFORMIN 500 MG TAB PO SCH (08:28)
[2023-09-18] MEDS: Clopidogrel Bisulfate 75 MG TAB PO SCH (08:29)
[2023-09-18] MEDS: Atorvastatin Calcium 40 MG TAB PO SCH (08:29)
[2023-09-18] MEDS: Acyclovir 400 mg Tablet PO SCH (08:29)
[2023-09-18] MEDS: Loratadine 10 MG TAB PO SCH (08:29)
[2023-09-18] MEDS: Aspirin 81 mg Enteric Coated Tablet PO SCH (08:29)
[2023-09-18] MEDS: Amlodipine 5 MG TAB PO SCH (08:30)
[2023-09-18 08:34] VITALS: BP 166/80
[2023-09-18 08:51] VITALS: TEMP 98.5
[2023-09-18] MEDS ORDERED: Cyanocobalamin (Vitamin B-12) 1,000 MCG TAB PO SCH (09:00)
[2023-09-18] MEDS ORDERED: Furosemide 20 MG TAB PO SCH (09:00)
[2023-09-18] MEDS ORDERED: Cholecalciferol 1,000 UNITS (25 MCG) TAB PO SCH (09:00)
[2023-09-18] MEDS ORDERED: Gabapentin 300 MG CAP PO SCH (09:00)
[2023-09-19] MEDS ORDERED: LevoFLOXacin 750 MG TAB PO SCH (06:00)
== END 2023-09-18 11:39 | disposition home or self-care (01) | DRG 689 ==
LOC: 2SE 01:03 → MSONC 14:20 → OBSVTOIN 09-17 16:41
PROVIDERS: ADMIT Student in an Organized Health Care Education/Training Program; ATTEND Family Medicine
DX: N39.0 Urinary tract infection, site not specified (principal); G93.41 Metabolic encephalopathy; N17.9 Acute kidney failure, unspecified; E78.5 Hyperlipidemia, unspecified; J44.9 Chronic obstructive pulmonary disease, unspecified; I25.10 Atherosclerotic heart disease of native coronary artery without angina pectoris; I10 Essential (primary) hypertension; E11.51 Type 2 diabetes mellitus with diabetic peripheral angiopathy without gangrene; K08.89 Other specified disorders of teeth and supporting structures; D53.9 Nutritional anemia, unspecified; B95.2 Enterococcus as the cause of diseases classified elsewhere; Z88.2 Allergy status to sulfonamides; Z91.018 Allergy to other foods; Z79.82 Long term (current) use of aspirin; Z79.899 Other long term (current) drug therapy; Z90.49 Acquired absence of other specified parts of digestive tract; Z95.818 Presence of other cardiac implants and grafts; Z98.890 Other specified postprocedural states
CPT/HCPCS: 36415; 36416; 80048; 80053; 85025; 96361; 96374; 96376; G0378; J0696; J3490; J7050

== ENCOUNTER 2023-09-26 21:09 | Inpatient (IN) | payer OTHER, MEDICAID ==
[2023-09-26] MEDS ORDERED: Ondansetron PF 4 MG/2 ML Vial ONE (21:46)
[2023-09-26 22:21] LABS: #Monocytes 0.7 thou/uL (0.11-0.59); #Neutrophils 4.2 thou/uL (1.40-6.50); %Basophils 0.3 % (0.0-1.0); %Eosinophils 0.6 % (0.0-10.0); %Lymphocytes 31.9 % (21.0-51.0); %Monocytes 9.1 % (0.0-10.0); %Neutrophils 57.8 % (42.0-75.0); Hemoglobin 10.6 g/dL (12.0-16.0); Mean Corpuscular HGB CONC 34.2 g/dL (32.0-36.0); Mean Corpuscular Hemoglobin 34.8 pg (27.0-31.0); Mean Corpuscular Volume 101.6 fl (78.0-98.0); Mean Platelet Volume 9.7 fL (7.4-10.4); Platelet Count 165 10x3/uL (130-400); RBC Distribution Width 11.9 % (11.5-14.5); Red Blood Cell (RBC) Count 3.05 mill/uL (4.20-5.40); White Blood Cell (WBC) Count 7.2 10x3/uL (4.8-10.8)
[2023-09-26 22:44] LABS: ALT (SGPT) 12 U/L (8-55); AST (SGOT) 19 U/L (5-34); Albumin 4.1 g/dL (3.4-4.8); Alkaline Phosphatase 67 U/L (40-110); Anion Gap 14 mmol/L (10-20); BUN (Urea Nitrogen) 44 mg/dL (9.8-20.1); Bilirubin, Total 0.4 mg/dL (0.2-1.2); Calc. Creatinine Clearance 0 mL/min (70-130); Calcium 8.9 mg/dL (7.8-10.44); Carbon Dioxide 25 mmol/L (23-31); Chloride 101 mmol/L (98-107); Estimated GFR 15; Glucose 133 mg/dL (83-110); Lipase 125 U/L (8-78); Potassium 3.9 mmol/L (3.5-5.1); Protein, Total 7.1 g/dL (5.8-8.1); Sodium 136 mmol/L (136-145)
[2023-09-26 23:51] LABS: Bilirubin Negative (Negative); Blood, Urine Negative (Negative); CAUTI Indications for Culture Alt mental st,lethar; Clarity Turbid (Clear); Glucose, Urine (Dipstick) Normal (Negative); Ketone, Urine Negative (Negative); Leukocyte Negative Leu/uL (Negative); Nitrite Negative (Negative); Protein, Urine (Dipstick) Negative (Neg-Trace); RBC/HPF 0-3 HPF (0-3); Specific Gravity, Urine 1.012 (1.002-1.036); Urobilinogen Normal mg/dL (Less than 2)
[2023-09-26 23:53] LABS: Bacteria/HPF Rare-Few HPF (None Seen)
[2023-09-26 23:54] LABS: Urine Culture Reflex No No
[2023-09-27] MEDS ORDERED: HumaLOG 300 UNITS/3 ML VIAL SC PRN ×2 (01:10)
[2023-09-27] MEDS ORDERED: Glucagon 1 MG/ML KIT IM PRN (01:10)
[2023-09-27] MEDS ORDERED: Dextrose 5% in Water 1,000 ML IV PRN (01:10)
[2023-09-27] MEDS ORDERED: Dextrose 50% Abboject 50 ML SYRINGE SLOW IVP PRN (01:10)
[2023-09-27] MEDS ORDERED: Ipratropium/Albuterol 3 ML NEB EZPAP PRN (01:11)
[2023-09-27] MEDS ORDERED: Acetaminophen 325 MG TAB PO PRN (01:15)
[2023-09-27] MEDS ORDERED: Ondansetron ODT 4 MG TAB SL PRN (01:15)
[2023-09-27] MEDS ORDERED: Ondansetron PF 4 MG/2 ML Vial IVP PRN (01:15)
[2023-09-27 05:16] LABS: #Eosinphils 0.1 thou/uL (0.0-0.7); #Monocytes 0.5 thou/uL (0.11-0.59); %Basophils 0.5 % (0.0-1.0); %Eosinophils 1.7 % (0.0-10.0); %Lymphocytes 40.3 % (21.0-51.0); %Monocytes 8.5 % (0.0-10.0); %Neutrophils 48.8 % (42.0-75.0); Hematocrit 27.1 % (36.0-47.0); Hemoglobin 9.2 g/dL (12.0-16.0); Mean Corpuscular HGB CONC 33.9 g/dL (32.0-36.0); Mean Platelet Volume 9.7 fL (7.4-10.4); Platelet Count 131 10x3/uL (130-400); RBC Distribution Width 11.8 % (11.5-14.5); Red Blood Cell (RBC) Count 2.63 mill/uL (4.20-5.40)
[2023-09-27 05:40] LABS: Anion Gap 11 mmol/L (10-20); BUN (Urea Nitrogen) 36 mg/dL (9.8-20.1); Calc. Creatinine Clearance 15 mL/min (70-130); Calcium 7.9 mg/dL (7.8-10.44); Carbon Dioxide 22 mmol/L (23-31); Chloride 109 mmol/L (98-107); Estimated GFR 23; Glucose 88 mg/dL (83-110); Potassium 3.8 mmol/L (3.5-5.1); Sodium 138 mmol/L (136-145)
[2023-09-27] MEDS: Furosemide 20 MG TAB PO SCH (08:30)
[2023-09-27] MEDS: Pantoprazole 40 MG VIAL IVP SCH (08:30)
[2023-09-27] MEDS: Carvedilol 25 MG TAB PO SCH ×2 (08:30→17:11)
[2023-09-27] MEDS ORDERED: Pantoprazole 40 MG VIAL ONE (08:31)
[2023-09-27] MEDS ORDERED: Furosemide 20 MG (2 mL) VIAL SLOW IVP SCH (09:00)
[2023-09-27] MEDS ORDERED: Albuterol HFA (OR) 200 PUFF INH INH PRN (14:08)
[2023-09-27] MEDS ORDERED: Acyclovir 400 mg Tablet PO SCH (21:00)
[2023-09-28 07:09] LABS: Anion Gap 11 mmol/L (10-20); BUN (Urea Nitrogen) 14 mg/dL (9.8-20.1); Calc. Creatinine Clearance 29 mL/min (70-130); Calcium 8.3 mg/dL (7.8-10.44); Carbon Dioxide 26 mmol/L (23-31); Chloride 110 mmol/L (98-107); Estimated GFR 49; Glucose 93 mg/dL (83-110); Potassium 4.1 mmol/L (3.5-5.1); Sodium 143 mmol/L (136-145)
[2023-09-28 07:33] LABS: #Basophils 0.1 thou/uL (0.0-0.2); #Eosinphils 0.1 thou/uL (0.0-0.7); #Monocytes 0.5 thou/uL (0.11-0.59); #Neutrophils 3.2 thou/uL (1.40-6.50); %Eosinophils 1.6 % (0.0-10.0); %Lymphocytes 36.3 % (21.0-51.0); %Monocytes 8.8 % (0.0-10.0); %Neutrophils 51.8 % (42.0-75.0); Hemoglobin 10.8 g/dL (12.0-16.0); Mean Corpuscular HGB CONC 30.9 g/dL (32.0-36.0); Mean Corpuscular Hemoglobin 34.6 pg (27.0-31.0); Mean Corpuscular Volume 112.2 fl (78.0-98.0); Mean Platelet Volume 9.9 fL (7.4-10.4); Platelet Count 188 10x3/uL (130-400); RBC Distribution Width 12.2 % (11.5-14.5); Red Blood Cell (RBC) Count 3.12 mill/uL (4.20-5.40); White Blood Cell (WBC) Count 6.2 10x3/uL (4.8-10.8)
[2023-09-28] MEDS: Isosorbide Mononitrate 30 MG ER.TAB PO SCH (10:14)
[2023-09-28] MEDS: Furosemide 20 MG TAB PO SCH (10:15)
[2023-09-28] MEDS: Clopidogrel Bisulfate 75 MG TAB PO SCH (10:15)
[2023-09-28] MEDS: Amlodipine 5 MG TAB PO SCH (10:16)
[2023-09-28] MEDS: Gabapentin 300 MG CAP PO SCH (10:16)
[2023-09-28] MEDS: Cilostazol 100 MG TAB PO SCH (10:17)
[2023-09-28] MEDS: Atorvastatin Calcium 40 MG TAB PO SCH (10:17)
[2023-09-28] MEDS: Aspirin 81 mg Enteric Coated Tablet PO SCH (10:17)
[2023-09-28] MEDS: Pantoprazole 40 MG VIAL IVP SCH (10:18)
[2023-09-28] MEDS: Carvedilol 25 MG TAB PO SCH ×2 (10:25→17:50)
[2023-09-28 10:46] LABS: Macrocytosis MODERATE=16-30 cells (100X) (0-5/hpf); Ovalocytes MODERATE= 6-15 cells (100X) (0-1/hpf); Platelet Adequacy Comment Appears Adequate; Target Cells SLIGHT = 2-5 cells (100X) (0-1/hpf)
[2023-09-29 05:48] LABS: #Eosinphils 0.2 thou/uL (0.0-0.7); #Monocytes 0.7 thou/uL (0.11-0.59); #Neutrophils 3.8 thou/uL (1.40-6.50); %Basophils 0.3 % (0.0-1.0); %Monocytes 9.1 % (0.0-10.0); %Neutrophils 51.5 % (42.0-75.0); Hematocrit 31.1 % (36.0-47.0); Hemoglobin 10.6 g/dL (12.0-16.0); Mean Corpuscular HGB CONC 34.1 g/dL (32.0-36.0); Mean Corpuscular Hemoglobin 34.6 pg (27.0-31.0); Mean Platelet Volume 9.3 fL (7.4-10.4); Platelet Count 141 10x3/uL (130-400); RBC Distribution Width 11.9 % (11.5-14.5); Red Blood Cell (RBC) Count 3.06 mill/uL (4.20-5.40); White Blood Cell (WBC) Count 7.4 10x3/uL (4.8-10.8)
[2023-09-29 06:01] LABS: Mean Corpuscular Volume 101.6 fl (78.0-98.0)
[2023-09-29 06:35] LABS: Anion Gap 13 mmol/L (10-20); BUN (Urea Nitrogen) 12 mg/dL (9.8-20.1); Calc. Creatinine Clearance 30 mL/min (70-130); Calcium 8.7 mg/dL (7.8-10.44); Carbon Dioxide 25 mmol/L (23-31); Chloride 108 mmol/L (98-107); Estimated GFR 57; Glucose 90 mg/dL (83-110); Sodium 142 mmol/L (136-145)
[2023-09-29] MEDS: Carvedilol 25 MG TAB PO SCH (09:30)
[2023-09-29] MEDS: Aspirin 81 mg Enteric Coated Tablet PO SCH (09:30)
[2023-09-29] MEDS: Amlodipine 5 MG TAB PO SCH (09:30)
[2023-09-29] MEDS: Isosorbide Mononitrate 30 MG ER.TAB PO SCH (09:31)
[2023-09-29] MEDS: Pantoprazole 40 MG VIAL IVP SCH ×2 (09:31→09:39)
[2023-09-29] MEDS: Furosemide 20 MG TAB PO SCH (09:31)
[2023-09-29] MEDS: Clopidogrel Bisulfate 75 MG TAB PO SCH (09:31)
[2023-09-29] MEDS: Cilostazol 100 MG TAB PO SCH (09:31)
[2023-09-29] MEDS: Atorvastatin Calcium 40 MG TAB PO SCH (09:40)
[2023-09-29] MEDS: Gabapentin 300 MG CAP PO SCH (09:40)
[2023-09-29 11:43] VITALS: BP 109/53; TEMP 97.5
[2023-09-30] MEDS ORDERED: Cholecalciferol 1,000 UNITS (25 MCG) TAB PO SCH ×2 (09:00)
== END 2023-09-29 12:54 | disposition home or self-care (01) | DRG 388 ==
LOC: ERS 21:09 → ERHOLD 09-27 00:59 → 2SW 09-27 15:59 → OBSVTOIN 09-28 13:55
PROVIDERS: ADMIT Internal Medicine; ATTEND Internal Medicine
DX: K56.600 Partial intestinal obstruction, unspecified as to cause (principal); I50.33 Acute on chronic diastolic (congestive) heart failure; N17.9 Acute kidney failure, unspecified; I13.0 Hypertensive heart and chronic kidney disease with heart failure and stage 1 through stage 4 chronic kidney disease, or unspecified chronic kidney disease; Z66 Do not resuscitate; N18.9 Chronic kidney disease, unspecified; E11.22 Type 2 diabetes mellitus with diabetic chronic kidney disease; I25.10 Atherosclerotic heart disease of native coronary artery without angina pectoris; J44.9 Chronic obstructive pulmonary disease, unspecified; E78.5 Hyperlipidemia, unspecified; K21.9 Gastro-esophageal reflux disease without esophagitis; Z88.2 Allergy status to sulfonamides; Z79.82 Long term (current) use of aspirin; Z79.899 Other long term (current) drug therapy; Z90.49 Acquired absence of other specified parts of digestive tract; Z98.890 Other specified postprocedural states; Z82.49 Family history of ischemic heart disease and other diseases of the circulatory system; E11.51 Type 2 diabetes mellitus with diabetic peripheral angiopathy without gangrene
CPT/HCPCS: 36415; 36416; 71045; 74176; 80048; 80053; 81001; 83605; 83690; 83880; 84484; 85025; 87086; 93005; 94760; 96361; 96374; C9113; J1815; J2405

== ENCOUNTER 2023-12-11 10:55 | Outpatient (CLI) | payer OTHER, MEDICAID | END 2023-12-11 10:56 | disposition home or self-care (01) | LOC: BICMAMMO 10:55 | PROVIDERS: ATTEND Family Medicine | DX: Z13.820 Encounter for screening for osteoporosis (principal); Z78.0 Asymptomatic menopausal state; M81.0 Age-related osteoporosis without current pathological fracture | CPT/HCPCS: 77080 ==

== ENCOUNTER 2024-10-03 00:37 | Inpatient (IN) | payer OTHER, MEDICAID ==
[2024-10-03] MEDS ORDERED: Ondansetron ODT 4 MG TAB PO PRN (01:12)
[2024-10-03] MEDS ORDERED: Ondansetron PF 4 MG/2 ML Vial IVP PRN (01:12)
[2024-10-03] MEDS ORDERED: Calcium Carbonate 500 MG ChewTAB PO PRN (01:12)
[2024-10-03] MEDS ORDERED: Acetaminophen 650 MG Suppository PR PRN (01:12)
[2024-10-03 01:13] VITALS: BMI 20.6
[2024-10-03] MEDS: Acetaminophen 325 MG TAB PO PRN (01:49)
[2024-10-03 01:55] LABS: #Basophils Less than 0.03 10x3/uL (0.0-0.2); %Basophils 0.3 % (0.0-1.0); %Eosinophils 2.6 % (0.0-10.0); %Lymphocytes 39.9 % (21.0-51.0); %Monocytes 8.7 % (0.0-10.0); %Neutrophils 48.2 % (42.0-75.0); Hematocrit 33.8 % (36.0-47.0); Hemoglobin 11.4 g/dL (12.0-16.0); Mean Corpuscular HGB CONC 33.7 g/dL (32.0-36.0); Mean Corpuscular Hemoglobin 34.1 pg (27.0-31.0); Mean Corpuscular Volume 101.2 fL (78.0-98.0); Mean Platelet Volume 9.3 fL (7.4-10.4); Platelet Count 181 10x3/uL (130-400); RBC Distribution Width 12.2 % (11.5-14.5); Red Blood Cell (RBC) Count 3.34 mill/uL (4.20-5.40)
[2024-10-03 02:08] LABS: Anion Gap 11 mmol/L (10-20); BUN (Urea Nitrogen) 29 mg/dL (9.8-20.1); Calc. Creatinine Clearance 22 mL/min (70-130); Calcium 9.7 mg/dL (7.8-10.44); Carbon Dioxide 24 mmol/L (23-31); Chloride 109 mmol/L (98-107); Estimated GFR 39; Glucose 96 mg/dL (83-110); Sodium 140 mmol/L (136-145)
[2024-10-03 02:16] LABS: Troponin I Less than 0.010 ng/mL (< 0.028)
[2024-10-03 05:16] LABS: Troponin I 0.012 ng/mL (< 0.028)
[2024-10-03] MEDS: Famotidine 20 MG TAB PO SCH (07:42)
[2024-10-03] MEDS: Aspirin Chewable 81 MG TAB PO SCH (07:42)
[2024-10-03] MEDS: Famotidine/PF 20 mg/2ml Vial SLOW IVP SCH (07:43)
[2024-10-03] MEDS ORDERED: Albuterol 200 PUFF (6.7GM INHALER) INH PRN (11:44)
[2024-10-03] MEDS: Cyanocobalamin (Vitamin B-12) 1,000 MCG TAB PO SCH (13:12)
[2024-10-03] MEDS: Cholecalciferol 1,000 UNITS (25 MCG) TAB PO SCH (13:12)
[2024-10-03 13:57] VITALS: BMI 20.6
[2024-10-03] MEDS: metFORMIN 500 MG TAB PO SCH (16:50)
[2024-10-03] MEDS: Carvedilol 25 MG TAB PO SCH (20:01)
[2024-10-03] MEDS: Gabapentin 300 MG CAP PO SCH (20:01)
[2024-10-04 04:24] LABS: ALT (SGPT) 15 U/L (8-55); AST (SGOT) 28 U/L (5-34); Albumin 3.4 g/dL (3.4-4.8); Alkaline Phosphatase 69 U/L (40-110); Anion Gap 13 mmol/L (10-20); BUN (Urea Nitrogen) 20 mg/dL (9.8-20.1); Bilirubin, Total 0.2 mg/dL (0.2-1.2); Calc. Creatinine Clearance 30 mL/min (70-130); Calcium 9.2 mg/dL (7.8-10.44); Carbon Dioxide 20 mmol/L (23-31); Chloride 111 mmol/L (98-107); Estimated GFR 55; Globulin 3.5 g/dL (2.4-3.5); Glucose 81 mg/dL (83-110); Protein, Total 6.9 g/dL (5.8-8.1); Sodium 139 mmol/L (136-145)
[2024-10-04] MEDS: Alogliptin 6.25 MG TAB PO SCH (08:46)
[2024-10-04] MEDS: Amlodipine 5 MG TAB PO SCH (08:46)
[2024-10-04] MEDS: Aspirin 81 mg Enteric Coated Tablet PO SCH (08:48)
[2024-10-04] MEDS: Atorvastatin Calcium 40 MG TAB PO SCH ×2 (08:48→20:56)
[2024-10-04] MEDS: Ezetimibe 10 MG TAB PO SCH ×2 (08:49→20:56)
[2024-10-04] MEDS: Clopidogrel Bisulfate 75 MG TAB PO SCH (08:49)
[2024-10-04] MEDS: Cilostazol 100 MG TAB PO SCH (08:49)
[2024-10-04] MEDS: Isosorbide Mononitrate 30 MG ER.TAB PO SCH (08:51)
[2024-10-04] MEDS: Loratadine 10 MG TAB PO SCH (08:51)
[2024-10-04 19:35] LABS: Troponin I Less than 0.010 ng/mL (< 0.028)
[2024-10-05 03:50] VITALS: TEMP 98.4
[2024-10-05 11:31] VITALS: BP 119/61
[2024-10-05] MEDS: HYDROcodone/Acetaminophen 5/325 mg Tablet PO PRN (11:47)
== END 2024-10-05 12:52 | disposition home or self-care (01) | DRG 313 ==
LOC: 2SE 00:37 → OBSVTOIN 10-04 18:23
PROVIDERS: ADMIT Student in an Organized Health Care Education/Training Program; ATTEND Student in an Organized Health Care Education/Training Program
DX: R07.9 Chest pain, unspecified (principal); I50.32 Chronic diastolic (congestive) heart failure; I13.0 Hypertensive heart and chronic kidney disease with heart failure and stage 1 through stage 4 chronic kidney disease, or unspecified chronic kidney disease; K21.9 Gastro-esophageal reflux disease without esophagitis; I25.10 Atherosclerotic heart disease of native coronary artery without angina pectoris; J44.9 Chronic obstructive pulmonary disease, unspecified; E11.9 Type 2 diabetes mellitus without complications; E78.5 Hyperlipidemia, unspecified; I73.9 Peripheral vascular disease, unspecified; Z90.49 Acquired absence of other specified parts of digestive tract; Z98.890 Other specified postprocedural states; Z79.899 Other long term (current) drug therapy; Z79.82 Long term (current) use of aspirin; Z88.2 Allergy status to sulfonamides; N18.30 Chronic kidney disease, stage 3 unspecified; Z79.84 Long term (current) use of oral hypoglycemic drugs
CPT/HCPCS: 36415; 36416; 80048; 80053; 83880; 84443; 84484; 85025; 93306; 94760; G0378; J3490

== ENCOUNTER 2025-06-21 08:11 | Inpatient (IN) | payer OTHER ==
[2025-06-21 09:38] VITALS: BMI 20.7
[2025-06-21] MEDS ORDERED: Senokot S 8.6-50 MG TAB PO PRN (09:42)
[2025-06-21] MEDS ORDERED: Ondansetron PF 4 MG/2 ML Vial IVP PRN (09:42)
[2025-06-21] MEDS ORDERED: Electrolyte Replacement Protocol 1 EACH FS SCH (09:45)
[2025-06-21] MEDS ORDERED: Glucagon 1 MG/ML KIT IM PRN (10:23)
[2025-06-21] MEDS ORDERED: Dextrose 50% Abboject 50 ML SYRINGE SLOW IVP PRN (10:23)
[2025-06-21] MEDS ORDERED: Albuterol 2.5 MG (0.5 mL) NEB NEB PRN (11:05)
[2025-06-21] MEDS: Acetaminophen 325 MG TAB PO PRN (12:09)
[2025-06-21] MEDS: Furosemide 40 MG (4 mL) VIAL SLOW IVP SCH (12:11)
[2025-06-21 12:45] LABS: Anion Gap 13 mmol/L (10-20); BUN (Urea Nitrogen) 35 mg/dL (9.8-20.1); Calc. Creatinine Clearance 19 mL/min (70-130); Calcium 8.7 mg/dL (7.8-10.44); Carbon Dioxide 23 mmol/L (23-31); Chloride 106 mmol/L (98-107); Glucose 92 mg/dL (83-110); Iron 43 ug/dL (50-170); Iron Binding Capacity, Total 271 mcg/dL (265-497); Potassium 4.2 mmol/L (3.5-5.1); Sodium 138 mmol/L (136-145)
[2025-06-21] MEDS ORDERED: Heparin 5,000 UNITS/ML VIAL SC SCH (15:00)
[2025-06-21] MEDS ORDERED: Albuterol 200 PUFF (6.7GM INHALER) INH PRN (16:14)
[2025-06-21] MEDS: metFORMIN 500 MG TAB PO SCH (18:03)
[2025-06-21 19:22] LABS: Bacteria/HPF None Seen HPF (None Seen); Glucose, Urine (Dipstick) Normal (Negative); Leukocyte Negative Leu/uL (Negative); Protein, Urine (Dipstick) Negative (Neg-Trace); RBC/HPF 0-3 HPF (0-3); Specific Gravity, Urine 1.007 (1.002-1.036); WBC/HPF 0-3 HPF (0-3)
[2025-06-21] MEDS: Heparin 5,000 UNITS/ML VIAL SC SCH (21:27)
[2025-06-21] MEDS: Gabapentin 300 MG CAP PO SCH (21:27)
[2025-06-21] MEDS: Melatonin 3 MG TAB PO PRN (21:28)
[2025-06-21] MEDS: Carvedilol 25 MG TAB PO SCH (21:28)
[2025-06-22 04:04] LABS: Anion Gap 15 mmol/L (10-20); BUN (Urea Nitrogen) 28 mg/dL (9.8-20.1); Calc. Creatinine Clearance 22 mL/min (70-130); Calcium 9.1 mg/dL (7.8-10.44); Carbon Dioxide 26 mmol/L (23-31); Chloride 105 mmol/L (98-107); Glucose 68 mg/dL (83-110); Potassium 3.7 mmol/L (3.5-5.1); Sodium 142 mmol/L (136-145)
[2025-06-22] MEDS ORDERED: Non-Formulary Item 1 EACH (Fluticasone/Umeclidin/Vilanter [Trelegy Ellipta 100-62.5-25] 1 INH SCH (09:00)
[2025-06-22] MEDS: Aspirin 81 mg Enteric Coated Tablet PO SCH (09:54)
[2025-06-22] MEDS: Cholecalciferol 1,000 UNITS (25 MCG) TAB PO SCH (09:54)
[2025-06-22] MEDS: Ezetimibe 10 MG TAB PO SCH (09:54)
[2025-06-22] MEDS: Isosorbide Mononitrate 30 MG ER.TAB.S PO SCH (09:55)
[2025-06-22] MEDS: Spironolactone 25 MG TAB PO SCH (10:00)
[2025-06-22] MEDS: Cyanocobalamin (Vitamin B-12) 1,000 MCG TAB PO SCH (10:06)
[2025-06-22] MEDS: Pantoprazole 40 MG DR.TAB PO SCH (11:11)
[2025-06-22] MEDS: Carvedilol 6.25 MG TAB PO SCH (11:12)
[2025-06-22] MEDS: Furosemide 20 MG (2 mL) VIAL SLOW IVP SCH ×2 (11:13→15:59)
[2025-06-22] MEDS: Sodium Ferric Gluconate 250 MG in Sodium Chloride 0.9% 250 ML 250 ML IVPB SCH (15:39)
[2025-06-22] MEDS: Mometasone 100 MCG HFA INHALER (RT USE) INH SCH (18:21)
[2025-06-23 03:55] LABS: Hematocrit 29.3 % (36.0-47.0); Hemoglobin 9.6 g/dL (12.0-16.0); Mean Corpuscular Hemoglobin 33.0 pg (27.0-31.0); Mean Corpuscular Volume 100.7 fL (78.0-98.0); Platelet Count 171 10x3/uL (130-400); Red Blood Cell (RBC) Count 2.91 mill/uL (4.20-5.40); White Blood Cell (WBC) Count 6.21 10x3/uL (4.8-10.8)
[2025-06-23 04:16] LABS: Anion Gap 13 mmol/L (10-20); BUN (Urea Nitrogen) 23 mg/dL (9.8-20.1); Calc. Creatinine Clearance 22 mL/min (70-130); Calcium 8.8 mg/dL (7.8-10.44); Carbon Dioxide 30 mmol/L (23-31); Chloride 103 mmol/L (98-107); Glucose 80 mg/dL (83-110); Potassium 3.5 mmol/L (3.5-5.1); Sodium 142 mmol/L (136-145)
[2025-06-23] MEDS: Benzocaine/Menthol 1 LOZ LOZ PO PRN (05:41)
[2025-06-23] MEDS: Sodium Ferric Gluconate 250 MG in Sodium Chloride 0.9% 250 ML 250 ML IVPB SCH (09:47)
[2025-06-23] MEDS: Spironolactone 25 MG TAB PO SCH (09:49)
[2025-06-23 12:03] VITALS: TEMP 97.9
[2025-06-23 12:04] VITALS: BP 134/79
[2025-06-23] MEDS ORDERED: Furosemide 20 MG TAB PO SCH (14:00)
== END 2025-06-23 16:00 | disposition home or self-care (01) | DRG 291 ==
LOC: INTOOBSV 09:08 → 2SE 09:08 → OBSVTOIN 06-22 08:00
PROVIDERS: ADMIT Internal Medicine; ATTEND Student in an Organized Health Care Education/Training Program
DX: I50.33 Acute on chronic diastolic (congestive) heart failure (principal); J96.01 Acute respiratory failure with hypoxia; N17.9 Acute kidney failure, unspecified; K21.9 Gastro-esophageal reflux disease without esophagitis; J44.9 Chronic obstructive pulmonary disease, unspecified; I25.10 Atherosclerotic heart disease of native coronary artery without angina pectoris; Z98.890 Other specified postprocedural states; E11.9 Type 2 diabetes mellitus without complications; Z86.73 Personal history of transient ischemic attack (TIA), and cerebral infarction without residual deficits; Z88.2 Allergy status to sulfonamides; Z91.018 Allergy to other foods; N18.30 Chronic kidney disease, stage 3 unspecified; Z79.899 Other long term (current) drug therapy; D50.9 Iron deficiency anemia, unspecified
CPT/HCPCS: 36415; 36416; 71046; 80048; 81001; 83540; 83550; 83880; 84443; 85027; 93005; 93010; 93306; 93798; 93970; 94640; 96372; 96374; G0378; J1644; J1940; J2916; J7050

== ENCOUNTER 2025-07-12 23:44 | Inpatient (IN) | payer OTHER ==
[2025-07-12 23:59] LABS: #Basophils 0.03 10x3/uL (0.0-0.2); #Eosinophils 0.03 10x3/uL (0.0-0.7); #Monocytes 0.56 10x3/uL (0.11-0.59); #Neutrophils 5.09 10x3/uL (1.40-6.50); %Basophils 0.4 % (0.0-1.0); %Eosinophils 0.4 % (0.0-10.0); %Lymphocytes 26.9 % (21.0-51.0); %Monocytes 7.1 % (0.0-10.0); %Neutrophils 64.8 % (42.0-75.0); Hematocrit 34.1 % (36.0-47.0); Hemoglobin 11.5 g/dL (12.0-16.0); Mean Corpuscular Hemoglobin 33.0 pg (27.0-31.0); Mean Corpuscular Volume 97.7 fL (78.0-98.0); Platelet Count 188 10x3/uL (130-400); Red Blood Cell (RBC) Count 3.49 mill/uL (4.20-5.40); White Blood Cell (WBC) Count 7.85 10x3/uL (4.8-10.8)
[2025-07-13 00:14] LABS: ALT (SGPT) 15 U/L (Less than 34); AST (SGOT) 27 U/L (11-34); Albumin 4.4 g/dL (3.1-4.5); Alkaline Phosphatase 83 U/L (40-110); Anion Gap 16 mmol/L (10-20); BUN (Urea Nitrogen) 55 mg/dL (9.8-20.1); Bilirubin, Total 0.4 mg/dL (0.3-1.2); Calc. Creatinine Clearance 0 mL/min (70-130); Calcium 9.3 mg/dL (7.8-10.44); Carbon Dioxide 22 mmol/L (23-31); Chloride 100 mmol/L (98-107); Globulin 3.6 g/dL (2.4-3.5); Glucose 140 mg/dL (83-110); Potassium 4.8 mmol/L (3.5-5.1); Sodium 133 mmol/L (136-145)
[2025-07-13] MEDS ORDERED: Ketorolac Tromethamine 30 MG (1 mL) VIAL ONE (00:17)
[2025-07-13] MEDS ORDERED: Ondansetron PF 4 MG/2 ML Vial IVP PRN (02:25)
[2025-07-13] MEDS ORDERED: Acetaminophen 325 MG TAB PO PRN (02:25)
[2025-07-13] MEDS ORDERED: Albuterol 200 PUFF (6.7GM INHALER) INH PRN (02:43)
[2025-07-13 04:22] VITALS: BMI 17.5
[2025-07-13 05:51] LABS: #Basophils Less than 0.03 10x3/uL (0.0-0.2); #Eosinophils 0.07 10x3/uL (0.0-0.7); #Monocytes 0.57 10x3/uL (0.11-0.59); #Neutrophils 3.55 10x3/uL (1.40-6.50); %Basophils 0.3 % (0.0-1.0); %Eosinophils 1.1 % (0.0-10.0); %Lymphocytes 35.7 % (21.0-51.0); %Monocytes 8.7 % (0.0-10.0); %Neutrophils 54.0 % (42.0-75.0); Hematocrit 31.7 % (36.0-47.0); Hemoglobin 10.6 g/dL (12.0-16.0); Mean Corpuscular Hemoglobin 32.9 pg (27.0-31.0); Mean Corpuscular Volume 98.4 fL (78.0-98.0); Platelet Count 169 10x3/uL (130-400); Red Blood Cell (RBC) Count 3.22 mill/uL (4.20-5.40); White Blood Cell (WBC) Count 6.56 10x3/uL (4.8-10.8)
[2025-07-13 06:56] LABS: Anion Gap 14 mmol/L (10-20); BUN (Urea Nitrogen) 52 mg/dL (9.8-20.1); Calc. Creatinine Clearance 12 mL/min (70-130); Calcium 8.7 mg/dL (7.8-10.44); Carbon Dioxide 20 mmol/L (23-31); Chloride 106 mmol/L (98-107); Glucose 97 mg/dL (83-110); Potassium 4.2 mmol/L (3.5-5.1); Sodium 136 mmol/L (136-145)
[2025-07-13] MEDS: Ezetimibe 10 MG TAB PO SCH (08:24)
[2025-07-14 06:11] LABS: Anion Gap 9 mmol/L (10-20); BUN (Urea Nitrogen) 32 mg/dL (9.8-20.1); Calc. Creatinine Clearance 0 mL/min (70-130); Calcium 8.7 mg/dL (7.8-10.44); Carbon Dioxide 24 mmol/L (23-31); Chloride 112 mmol/L (98-107); Glucose 73 mg/dL (83-110); Potassium 4.1 mmol/L (3.5-5.1); Sodium 141 mmol/L (136-145)
[2025-07-14] MEDS: Isosorbide Mononitrate 30 MG ER.TAB.S PO SCH (12:06)
[2025-07-14 12:07] VITALS: BP 122/63
[2025-07-14] MEDS: Carvedilol 6.25 MG TAB PO SCH (12:07)
[2025-07-14 12:30] VITALS: TEMP 97.3
[2025-07-14 12:50] VITALS: BMI 17.5
[2025-07-14] MEDS ORDERED: Carvedilol 6.25 MG TAB PO SCH (17:00)
[2025-07-15] MEDS ORDERED: Isosorbide Mononitrate 30 MG ER.TAB.S PO SCH (09:00)
== END 2025-07-14 16:39 | disposition home or self-care (01) | DRG 683 ==
LOC: ERS 23:44 → T4-A 07-13 02:28
PROVIDERS: ADMIT Internal Medicine; ATTEND Internal Medicine
DX: N17.9 Acute kidney failure, unspecified (principal); E87.1 Hypo-osmolality and hyponatremia; I13.0 Hypertensive heart and chronic kidney disease with heart failure and stage 1 through stage 4 chronic kidney disease, or unspecified chronic kidney disease; I50.32 Chronic diastolic (congestive) heart failure; J96.11 Chronic respiratory failure with hypoxia; E86.0 Dehydration; I25.10 Atherosclerotic heart disease of native coronary artery without angina pectoris; E11.9 Type 2 diabetes mellitus without complications; K21.9 Gastro-esophageal reflux disease without esophagitis; N18.32 Chronic kidney disease, stage 3b; M19.90 Unspecified osteoarthritis, unspecified site; I95.9 Hypotension, unspecified; E11.42 Type 2 diabetes mellitus with diabetic polyneuropathy; J44.9 Chronic obstructive pulmonary disease, unspecified; E11.51 Type 2 diabetes mellitus with diabetic peripheral angiopathy without gangrene; Z95.5 Presence of coronary angioplasty implant and graft; Z86.711 Personal history of pulmonary embolism; Z86.718 Personal history of other venous thrombosis and embolism; Z98.890 Other specified postprocedural states; Z88.2 Allergy status to sulfonamides; Z91.018 Allergy to other foods
CPT/HCPCS: 36415; 36416; 76770; 80048; 80053; 85025; 96374; J1885; J7030